=== PATIENT | male | born 1995 | race African-American/Black ===

== ENCOUNTER 2017-02-21 00:13 | Emergency (ER) | payer OTHER ==
[~2017-02-21] VITALS: Ht 175.3 cm; Wt 70.3 kg
[2017-02-21 02:23] VITALS: BP 121/86
== END 2017-02-21 02:25 | disposition home or self-care (01) ==
LOC: ER 00:13
DX: S80.02XA Contusion of left knee, initial encounter (principal); V89.2XXA Person injured in unspecified motor-vehicle accident, traffic, initial encounter; Y93.89 Activity, other specified; Y92.89 Other specified places as the place of occurrence of the external cause; Y99.8 Other external cause status